=== PATIENT | male | born 1960 | race Caucasian/White ===

== ENCOUNTER 2020-06-19 08:24 | Outpatient (CLI) | payer OTHER, SELFPAY ==
--- NOTE | 2020-08-05 09:56 | WPDHOMESLEEP ---
Sleep Study - Home Unattended Date of Study: 06/19/20 Ordering Provider: Agustin Hargrove MD Interpreting Physician: Jacqueline Vance MD Home Sleep Study Type: Apnea Link Air Height: 1.8 m Weight: 76.204 kg Body Mass Index: 23.4 Neck Circumference (inches): 17 [place]: 8 Reason for Sleep Study Loud snoring Sleep History Joao Salomon is a 60 year-old man with a history of loud snoring for years. His wakes him up every night around 3:00-4:00 a.m. because of his loud snoring. He occasionally awakens at night with heartburn, belching or coughing. He rarely awakens from sleep feeling short of breath. He occasionally has trouble sleeping with a cold. He rarely wakes up gasping for breath at night. He occasionally has breathing problems at night observed by others. He rarely sweats excessively at night, rarely notices his heart pounding irregularly at night. He occasionally falls asleep during the day, never involuntarily, never while driving, and never while exerting physical effort. he does not have loss of muscle tone with strong emotion. He rarely has daytime difficulties due to excessive sleepiness. He does not feel paralyzed on waking or falling asleep, does not have vivid dreamlike scenes upon awakening or falling asleep. He is not afraid to go to sleep. He rarely has nightmares. He rarely remembers his dreams. He frequently has racing thoughts. He rarely feels sad or depressed. He occasionally feels anxious. He occasionally has muscular tension. He rarely notices parts of his body jerking, rarely kicks at night, rarely has crawling and aching feelings in his legs and rarely has any kind of leg pain at night. He does not have morning jaw pain. He does not grind his teeth during sleep. He occasionally has bothered by pain during the day, occasionally is awakened by pain at night. He rarely wakes up feeling stiff in the morning with sore achy muscles. He occasionally wakes up with pain in the neck and spine. he has memory problems, headaches, and feels unable to relax. Normal bedtime 9:00 p.m. taking 15-20 minutes to fall asleep, typically waking 1 time at night. when he wakes up he may go urinate, or may lie awake trying to get back to sleep. Often takes him 30 minutes to return to sleep. He wakes the morning at 5:30 a.m.. On the weekends he may stay awake later, going to bed between 9 and 9:30 p.m. waking at 7:00 a.m.. He estimates on average 8-9 hours of sleep at night. He does not take naps. A short nap may be refreshing. He feels better in the afternoon compared to the morning. Habits: Never smoked. Caffeine 132 out soda per day. No alcohol or recreational drugs. [facility] Past Medical History Medical History (Updated 08/05/20 @ 10:20 by Jacqueline Vance MD) Depression Pterygium eye surgery Pure hypercholesterolemia Snoring Social History Social History Smoking status: Never smoker Second hand tobacco smoke exposure: No Alcohol intake: never Substance use: never Medications Home Medications Medication Instructions Recorded Confirmed Type citalopram 20 mg tablet 20 mg PO DAILY #90 tablet 03/09/20 Rx Sleep Procedure This test was performed using 4 channel monitoring including respiratory effort channel, snoring channel, heart rate channel, and oxygen saturation channel. This study was scored using [facility] guidelines. Sleep Architecture Not applicable for home sleep test. Respiratory Analysis The recording time was 9 hours 24 minutes, evaluation time was 9 hours 8 minutes. The apnea-hypopnea index is 9. There were 67 apneas. The majority, 62 apneas or 93% were obstructive, 4 apneas or 6% were central and 1 apnea or 1% with a mixed apnea. There were 14 hypopneas. There is no evidence of Javon-Scott respirations. Oximetry Data The oxygen desaturation index is 5.4. There were 50 desaturations a 4% or greater. The low
[2020-08-05 10:11] VITALS: BMI 23.4
== END 2020-06-19 08:25 | disposition home or self-care (01) ==
LOC: ANHCSM 08:24
PROVIDERS: PCP Internal Medicine; Visit Provider Internal Medicine
DX: G47.33 Obstructive sleep apnea (adult) (pediatric) (principal)
CPT/HCPCS: 95806

== ENCOUNTER 2023-08-08 17:44 | Inpatient (IN) | payer OTHER, SELFPAY ==
[2023-08-08] VITALS (27 sets, daily range): BP systolic 117–147; BP diastolic 70–97; PULSE 62–85; RESP 13–20; TEMP 36.4–36.6; O2SAT 94–100; BMI 24.1
--- NOTE | ~2023-08-08 | XR_ITS ---
EXAMINATION: XR chest 2V DATE: 08/08/2023 18:10 INDICATION: Chest pain. TECHNIQUE: Frontal and lateral views of the chest were obtained. COMPARISON: Chest 2 views 01/17/2019 FINDINGS: There is no pneumonia, pleural effusion, or pneumothorax. The heart size is normal. IMPRESSION: 1. No acute cardiopulmonary disease. Reviewed, dictated and finalized at location E. RT FIRER
--- NOTE | 2023-08-08 17:45 | ECG_ITS ---
Measurements Intervals [place] Rate: 67 P: 64 [place]: 162 QRS: -75 QRSD: 156 T: 36 QT: 424 QTc: 449 Interpretive Statements SINUS RHYTHM WITH SINUS ARRHYTHMIA POSSIBLE LEFT ATRIAL ENLARGEMENT RIGHT BUNDLE BRANCH BLOCK LEFT ANTERIOR FASCICULAR BLOCK ST ELEVATION IN HIGH LATERAL LEADS- CONSIDER ACUTE INJURY WITH RECIPROCAL ST DEPRESSION IN INFERIOR LEADS ABNORMAL ECG NO PREVIOUS ECG AVAILABLE FOR COMPARISON Electronically Signed On 08-08-2023 18:48:37 [employer] by Toney Camara D.O.
[2023-08-08 18:09] LABS: Basophils Percent Auto 0.4 % (0.2-1.2); Eosinophils Absolute Auto 0.5 K/mm3 (0-0.3); Hematocrit 49.8 % (42.0-52.0); Hemoglobin 16.3 g/dL (14.0-18.0); Immature Granulocyte Absolute 0.03 K/mm3 (0.00-0.031); Immature Granulocyte Percent A 0.4 % (0-0.5); Lymphocytes Absolute Auto 1.53 K/mm3 (0.9-3.2); Mean Corpuscular HGB Conc 32.7 g/dl (32-36); Mean Corpuscular Hemoglobin 29.3 pg (26-34); Mean Corpuscular Volume 89.4 fl (80-100); Mean Platelet Volume 8.4 fl (7.4-10.4); Monocytes Absolute Auto 0.6 K/mm3 (0.1-0.6); Monocytes Percent Auto 7.9 % (2.6-8.5); Neutrophils Percent Auto 65.3 % (45.5-73.1); Platelet Count Result 260 k/mm3 (150-375); Red Blood Count 5.57 M/mm3 (4.6-6.20); Red Cell Distribution Width 12.9 % (11.5-14.5); White Blood Count 7.6 K/mm3 (4.5-10.0)
[2023-08-08 18:19] LABS: Prothrombin Time 13.8 Seconds (11.1-14.7)
[2023-08-08 18:20] LABS: Partial Thromboplastin Time 25.8 SECONDS (22.3-36.8)
[2023-08-08 18:22] LABS: Alanine Aminotransferase 32 U/L (6-50); Albumin Level 4.6 g/dL (3.5-5.1); Alkaline Phosphatase 82 U/L (38-126); Anion Gap 9 mmol/L (8-16); Aspartate Amino Transferase 35 U/L (17-59); Bilirubin,Total 0.8 mg/dL (0.2-1.3); Blood Urea Nitrogen 26 mg/dL (9-20); Calcium 9.5 mg/dL (8.4-10.2); Carbon Dioxide 30 mmol/L (22-30); Chloride 101 mmol/L (98-107); Estimated CRCL calculation 86 ml/min; Estimated Glomerular Filt Rate > 60; Glucose 114 mg/dL (65-110); Lipase 92 U/L (23-300); Potassium 4.2 mmol/L (3.4-5.0); Sodium 140 mmol/L (137-145)
--- NOTE | 2023-08-08 18:28 | ECG_ITS ---
Measurements Intervals [place] Rate: 73 P: 52 [place]: 164 QRS: -77 QRSD: 159 T: 61 QT: 427 QTc: 474 Interpretive Statements SINUS RHYTHM POSSIBLE LEFT ATRIAL ENLARGEMENT RIGHT BUNDLE BRANCH BLOCK LEFT ANTERIOR FASCICULAR BLOCK ABNORMAL ECG COMPARED TO ECG 08/08/2023 17:48:47 ST ELEVATION IMPROVED AND ST DEPRESSION RESOLVED Electronically Signed On 08-09-2023 9:10:20 FIELD RESEARCH ASSISTANT by Toney Camara D.O.
[2023-08-08 18:35] LABS: Troponin I 0.195 ng/mL (0.000-0.034)
[2023-08-08] MEDS: ASPIRIN 81 MG CHEWABLE TABLET 324 MG PO (18:48)
--- NOTE | 2023-08-08 19:50 | ED.GENADULT ---
HPI - General Adult General Chief complaint: Chest Pain Stated complaint: cp Time Seen by Provider: 08/08/23 19:08 History of Present Illness HPI narrative: Patient is a 63-year-old gentleman who presents emergency department with chief complaint of chest pain. Patient reports that he was at the gym today had an episode of midsternal chest pain reports that it was a pressure and squeezing sensation that radiated to his back the patient states the pain is resolved since he has arrived to the emergency department patient did report that he may have been a little sweaty but had just been working out and reports he felt a little short of breath when it 1st happened the patient reports that he is normally very active individual and has not had an episode like this happen whenever he has activity. Patient reports no prior history of cardiac disease Related Data Allergies Allergy/AdvReac Type Severity Reaction Status Date / Time cefuroxime Allergy Mild GI upset Verified 10/10/22 15:50 Review of Systems Review of Systems: A 10 system review of systems was completed on the patient and is negative except for what is stated in the HPI. Nursing and ancillary documentation was reviewed. [facility] Past Medical History Medical History Depression Pterygium eye surgery Pure hypercholesterolemia Snoring Social History Social History Smoking status: Never smoker Second hand tobacco smoke exposure: No Alcohol intake: never Substance use: never Lack of Transportation: No Lack of Food: Never True Current Housing: I Have Housing Concerned About Future Housing: No Difficulty Paying Gas/Electric Bills: No Difficulty Paying for Meds: No Currently Unemployed: No Education: Bachelor's Degree Difficulty w/ Childcare or Family Care: No Exam Narrative: GENERAL: Well-appearing, well-nourished, and in no acute distress. HEAD: Normocephalic, atraumatic. EYES: PERRLA and EOMI. ENT: Nares clear, no rhinorrhea or epistaxis. Mucous membranes moist. NECK: Supple. CHEST: Clear to auscultation. No respiratory distress. HEART: Regular rate and rhythm. No murmur heard. Normal peripheral pulses. ABDOMEN: Soft, nontender, nondistended, normal active bowel sounds. EXTREMITIES: Normal range of motion. No edema. SKIN: Warm, dry, no rash. NEURO: No focal deficits. Alert and oriented x3. PSYCH: Normal mood and affect. Course Vital Signs Vital signs: Vital Signs Temperature 36.4 C 08/08/23 18:01 Pulse Rate 71 08/08/23 18:01 Respiratory Rate 20 08/08/23 18:01 Blood Pressure 147/93 H 08/08/23 18:01 Pulse Oximetry 100 08/08/23 18:01 Oxygen Delivery Room Air 08/08/23 18:01 Temperature 36.4 C 08/08/23 18:01 Pulse Rate 76 08/08/23 18:41 Respiratory Rate 20 08/08/23 18:41 Blood Pressure 145/97 H 08/08/23 18:41 Pulse Oximetry 96 08/08/23 18:41 Oxygen Delivery Room Air 08/08/23 18:01 Medical Decision Making MDM Narrative Medical decision making narrative: Differential diagnosis includes ACS, atypical chest pain, EKG initially was performed in triage that showed ST depression with minimal ST elevation the patient's pain had resolved and repeat EKG showed improvement in the ST depressions and ST elevations Upon initial arrival the patient's EKG was reviewed by the day provider and was not activated as an ST-elevation OR. Patient is currently chest pain-free and repeat EKG shows improvement in the ST depressions and improvement in the ST elevations the case was discussed with Dr. Gandara who is on-call for Interventional Cardiology given the patient is chest pain-free and there is improvement in the EKG cardiology felt as though the patient did not require emergent cardiac catheterization and will plan for cardiac catheterization during the daytime the patie
[2023-08-08] MEDS: METOPROLOL TARTRATE 25 MG TABLET PO (20:14)
[2023-08-08] MEDS: NITROGLYCERIN OINTMENT 1 INCH DOSE TRANSDERM (20:14)
[2023-08-08] MEDS: HEPARIN SODIUM 5,000 UNITS/ML VIAL 4000 UNITS IV PUSH (20:17)
--- NOTE | 2023-08-08 20:17 | PM.IMHP ---
H&P: HPI History of Present Illness Date/Time: 08/08/23 20:17 Chief Complaint: Chest stiffness Review of Systems Review of Systems: 12 systems were reviewed with pertinent positives and negatives per HPI. Except as documented in the HPI, all other systems were reviewed and are negative. [facility] Past Medical History Medical History (Updated 08/09/23 @ 00:50 by Elvira Arrieta DO) Allergic rhinitis Depression Obstructive sleep apnea Polysomnogram 2020 recommending auto titrating CPAP 6-15 cm of water. However the patient states his physician told him given his symptoms that he did not need to use CPAP Pterygium eye surgery Pure hypercholesterolemia Squamous cell carcinoma of right hand Surgical History Surgical History (Updated 08/09/23 @ 00:59 by Elvira Arrieta DO) No history of previous surgery Family History Family History (Updated 08/09/23 @ 01:01 by Elvira Arrieta DO) Father Heart disease Acute myocardial infarction, Onset Age: 50 COPD (chronic obstructive pulmonary disease) Cause of approximately 70 Mother Age older than 80 years Healthy adult Social History Social History (Updated 08/09/23 @ 01:03 by Elvira Arrieta DO) Social History: Patient lives with his of 27 years. He has 2 step children. 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 He does not drink alcohol at all. He is a lifelong nonsmoker and does not use illicit substances. 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 Code status: Full code Surrogate decision maker: Muriel () cell number Smoking status: Never smoker Second hand tobacco smoke exposure: No Alcohol intake: never Substance use: never Substance use type: does not use Do You Feel Safe in your Home?: Yes Lack of Transportation: No Lack of Food: Never True Current Housing: I Have Housing Concerned About Future Housing: No Difficulty Paying Gas/Electric Bills: No Difficulty Paying for Meds: No Currently Unemployed: No Education: Bachelor's Degree Difficulty w/ Childcare or Family Care: No Spiritual care concerns: No Meds Home Medications and Allergies Home Medications Medication Instructions Recorded Confirmed Type citalopram 20 mg tablet (Celexa) 20 mg PO QHS 08/09/23 08/09/23 History Allergies Allergy/AdvReac Type Severity Reaction Status Date / Time cefuroxime Allergy Mild GI upset Verified 10/10/22 15:50 Vital Signs Vital Signs - 24 hr 08/08/23 18:01 08/08/23 18:41 Temperature 97.6 F Pulse Rate 71 76 Respiratory Rate 20 20 Blood Pressure 147/93 H 145/97 H Pulse Oximetry 100 96 Oxygen Delivery Room Air Exam Narrative: Weight 78.6 kg BMI 24.2 Const: Other: Well-developed, well-nourished, appears younger than stated age HENMT: Other: Head is normocephalic atraumatic, male pattern baldness, mucous membranes are moist, no oral pharyngeal erythema, crowded posterior oropharynx Eyes: Other: Pupils are equal and reactive, no scleral icterus, no conjunctival pallor Neck: Other: No JVD, supple Resp: Other: Clear to auscultation bilaterally, no increased work of breathing Cardio: Other: Regular rate, regular rhythm, 2+ bilateral radial pedal pulses GI: Other: Soft, nontender, nondistended, positive bowel sounds Skin: Other: No jaundice, no pallor Neuro: Other: Alert oriented, speech is clear, no facial asymmetry, no localizing neurologic deficits Extrem: Other: No clubbing, cyanosis or edema Psych: Other: Appropriate mood and affect, pleasant and cooperative H&P: Results Labs Labs: Laboratory Tests 08/08/23 17:55 08/08/23 17:55 08/08/23 17:55 WBC 7.6 RBC 5.57 Hgb 16.3 Hct 49.8 MCV 89.4 MCH 29.3 MCHC 32.7 RDW 12.9 Plt Count 260
[2023-08-08] MEDS: HEPARIN SOD/D5W 100 UNITS/ML 25,000 UNITS/250 ML BAG 9 UNITS IV CONT (20:18)
[2023-08-08] MEDS: SODIUM CHLORIDE 0.9% IV 1,000 ML 125 ML IV CONT (21:09)
--- NOTE | 2023-08-08 21:14 | ECG_ITS ---
Measurements Intervals [place] Rate: 64 P: 59 [place]: 172 QRS: -58 QRSD: 158 T: 53 QT: 432 QTc: 447 Interpretive Statements SINUS RHYTHM RIGHT BUNDLE BRANCH BLOCK LEFT ANTERIOR FASCICULAR BLOCK BASELINE ARTIFACT- I, III, AVL ABNORMAL ECG COMPARED TO ECG 08/08/2023 18:28:16 NO SIGNIFICANT CHANGES Electronically Signed On 08-09-2023 6:41:02 CLASSIFIED COPY CONTROL CLERK by Toney Camara D.O.
[2023-08-09] VITALS (25 sets, daily range): BP systolic 111–152; BP diastolic 68–98; PULSE 62–77; RESP 16–22; TEMP 36.3–37.2; O2SAT 93–99
--- NOTE | 2023-08-09 | ECHO_ITS ---
Patient Info Name: Joao Salomon Age: 63 years : 1960 Gender: Male Ht: 71 in Wt: 168 lbs BSA: 1.96 m2 HR: 69 bpm BP: 114 / 74 mmHg Heart Rhythm: Sinus Rhythm Technical Quality: Good Exam Date: 08/09/2023 1:19 PM Exam Location: Echo Lab Patient Status: Inpatient Admit Date: 08/08/2023 Staff Ordering Physician: Alvin Zamudio MD Surgical Territory Manager: Genoveva Bui RDCS Attending Provider: Elvira Arrieta DO Referring Physician: Lizz MUÑOZ; Exam Type: CA echo doppler color flow Study Info Indications - acute coronary syndrom Complete two-dimensional, color flow and Doppler transthoracic echocardiogram is performed. Summary 1. Complete two-dimensional, color flow and Doppler transthoracic echocardiogram is performed. 2. Left ventricular chamber dimension is normal. 3. Left ventricular systolic function is normal, estimated at 60-65%. 4. There is mildly increased left ventricular wall thickness. 5. The left ventricular diastolic function is grade I diastolic dysfunction. 6. The apical lateral wall, and apical cap are hypokinetic. 7. Left atrial chamber dimension is mildly enlarged. 8. There is mild mitral valve regurgitation. 9. There is mild pulmonic regurgitation. Left Ventricle Left ventricular chamber dimension is normal. Left ventricular systolic function is normal, estimated at 60-65%. There is mildly increased left ventricular wall thickness. The left ventricular diastolic function is grade I diastolic dysfunction. The apical lateral wall, and apical cap are hypokinetic. All other enciso appear normal. Right Ventricle Right ventricular chamber dimension is normal. Right ventricular systolic function is normal. Left Atria Left atrial chamber dimension is mildly enlarged. Right Atria Right atrial chamber dimension is normal. Atrial Septum Intact interatrial septum visualized by color flow imaging. Aortic Valve The aortic valve is trileaflet. There is no aortic valve sclerosis. There is no aortic valve stenosis. There is trace aortic valve regurgitation. Pulmonic Valve The pulmonic valve is normal. There is no pulmonic valve stenosis. There is mild pulmonic regurgitation. Mitral Valve The mitral valve has normal leaflets. There is no mitral valve stenosis. There is mild mitral valve regurgitation. Tricuspid Valve The tricuspid valve leaflets are normal. There is no significant tricuspid valve stenosis. There is trace tricuspid valve regurgitation. No pulmonary hypertension, estimated pulmonary arterial systolic pressure is 25 mmHg. Pericardium/Pleural The pericardium appears normal. There is no pericardial effusion. Inferior Vena Cava Dilated inferior vena cava with >50% collapse upon inspiration consistent with normal right atrial pressure, 15 mmHg. Aorta The aortic root size at the sinus of Valsalva is normal. Left Ventricular Outflow Tract Name Value Normal LVOT 2D LVOT Diameter 2.0 cm LVOT Doppler LVOT Peak Gradient 4 mmHg LVOT Mean Gradient 2 mmHg LVOT VTI 20 cm LVOT VTI/AV VTI Ratio 0.7 LVOT Stroke Volume
--- NOTE | 2023-08-09 00:02 | ADMGEN ---
This patient, Joao Salomon, was admitted to IMU Room 203-01. Patient/family oriented to hospital policies and general routines including ID bracelet, bed and alarms, visiting hours, pain management, procedures, bathroom and other care routines, personal items, smoking policy, room service/diet, and visiting hours. Information on how to activate the Rapid Response Team has been discussed. Patient/Family are encouraged to report perceived risks to care and to ask questions if they do not understand what they are told or what they should do.
[2023-08-09 00:27] LABS: Cholesterol 238 mg/dL (0-200); HDL Direct 58 mg/dL; Triglycerides 92 mg/dL (<150)
[2023-08-09 00:36] LABS: Basophils Percent Auto 0.2 % (0.2-1.2); Eosinophils Absolute Auto 0.2 K/mm3 (0-0.3); Eosinophils Percent Auto 2.1 % (0-4.4); Hematocrit 47.7 % (42.0-52.0); Hemoglobin 15.5 g/dL (14.0-18.0); Immature Granulocyte Absolute 0.02 K/mm3 (0.00-0.031); Immature Granulocyte Percent A 0.2 % (0-0.5); Lymphocytes Absolute Auto 1.81 K/mm3 (0.9-3.2); Lymphocytes Percent Auto 21.3 % (18.3-44.2); Mean Corpuscular HGB Conc 32.5 g/dl (32-36); Mean Corpuscular Hemoglobin 28.7 pg (26-34); Mean Corpuscular Volume 88.3 fl (80-100); Mean Platelet Volume 8.4 fl (7.4-10.4); Monocytes Absolute Auto 0.6 K/mm3 (0.1-0.6); Monocytes Percent Auto 6.5 % (2.6-8.5); Neutrophils Absolute Auto 5.9 K/mm3 (1.3-6.7); Neutrophils Percent Auto 69.7 % (45.5-73.1); Platelet Count Result 252 k/mm3 (150-375); Red Cell Distribution Width 13.1 % (11.5-14.5); White Blood Count 8.5 K/mm3 (4.5-10.0)
[2023-08-09 00:37] LABS: INR 1.1; Prothrombin Time 14.1 Seconds (11.1-14.7)
[2023-08-09 00:38] LABS: LDL Cholesterol Direct 160 mg/dL; Partial Thromboplastin Time 81.7 SECONDS (22.3-36.8)
--- NOTE | 2023-08-09 01:00 | ECG_ITS ---
Measurements Intervals [place] Rate: 65 P: 21 [place]: 160 QRS: -63 QRSD: 161 T: 46 QT: 451 QTc: 471 Interpretive Statements SINUS RHYTHM RIGHT BUNDLE BRANCH BLOCK LEFT ANTERIOR FASCICULAR BLOCK ABNORMAL ECG COMPARED TO ECG 08/08/2023 21:08:58 NO SIGNIFICANT CHANGES Electronically Signed On 08-09-2023 6:49:26 RVDA MASTER CERTIFIED RV TECHNICIAN by Toney Camara D.O.
[2023-08-09] MEDS: CITALOPRAM HYDROBROMIDE 20 MG TABLET PO ×2 (02:01→20:48)
[2023-08-09 02:23] LABS: Basophils Percent Auto 0.3 % (0.2-1.2); Eosinophils Absolute Auto 0.2 K/mm3 (0-0.3); Hematocrit 45.9 % (42.0-52.0); Immature Granulocyte Absolute 0.01 K/mm3 (0.00-0.031); Immature Granulocyte Percent A 0.1 % (0-0.5); Lymphocytes Absolute Auto 1.75 K/mm3 (0.9-3.2); Mean Corpuscular HGB Conc 32.7 g/dl (32-36); Mean Corpuscular Hemoglobin 29.2 pg (26-34); Mean Corpuscular Volume 89.3 fl (80-100); Mean Platelet Volume 8.3 fl (7.4-10.4); Monocytes Absolute Auto 0.6 K/mm3 (0.1-0.6); Monocytes Percent Auto 7.9 % (2.6-8.5); Neutrophils Percent Auto 65.7 % (45.5-73.1); Platelet Count Result 216 k/mm3 (150-375); Red Blood Count 5.14 M/mm3 (4.6-6.20); White Blood Count 7.6 K/mm3 (4.5-10.0)
[2023-08-09 02:41] LABS: INR 1.1; Prothrombin Time 14.2 Seconds (11.1-14.7)
[2023-08-09 02:43] LABS: Partial Thromboplastin Time 63.1 SECONDS (22.3-36.8)
[2023-08-09] MEDS: ASPIRIN 81 MG CHEWABLE TABLET PO (08:40)
[2023-08-09] MEDS: METOPROLOL TARTRATE 25 MG TABLET PO ×2 (08:41→20:48)
[2023-08-09] MEDS: ATORVASTATIN 40 MG TABLET PO (08:41)
[2023-08-09 09:15] LABS: Partial Thromboplastin Time 66.6 SECONDS (22.3-36.8)
[2023-08-09] MEDS: HEPARIN SODIUM 5,000 UNITS/ML VIAL 3000 UNITS IV PUSH (09:47)
--- NOTE | 2023-08-09 11:26 | PM.CNCAR ---
Assessment and Plan Assessment and plan (1) ACS (acute coronary syndrome): Code(s): I24.9 - Acute ischemic heart disease, unspecified Status: Acute Assessment and Plan: He has a few risk factors for coronary disease including family history artery disease, age and hyperlipidemia. EKGs are concerning for circumflex lesion. Currently pain free. continue heparin. Patient's troponins have peaked at over 7 and are now down trending. Patient is currently pain-free. Continue atorvastatin, aspirin, metoprolol, nitroglycerin. I did talk about the risks benefits alternatives and he verbalized understanding and is willing to proceed with a coronary angiogram. Patient will be kept NPO and this will be performed by Dr. Callaway. 2D echocardiogram Doppler was also ordered and will be reviewed (2) Obstructive sleep apnea: Code(s): G47.33 - Obstructive sleep apnea (adult) (pediatric) Status: Acute Assessment and Plan: Encourage CPAP use (3) Pure hypercholesterolemia: Code(s): E78.00 - Pure hypercholesterolemia, unspecified Status: Acute Assessment and Plan: Will start statin (4) Depression: Code(s): F32.9 - Major depressive disorder, single episode, unspecified Status: Acute Assessment and Plan: On citalopram History of Present Illness History of Present Illness Consult date/time: 08/09/23 11:26 Requesting physician: Valeriano Rivero MD Consult reason: chest pain Reason For Visit: Acute Coronary Syndrome Narrative: Reason for consultation: ACS, chest pain Date of service 08/09/2023 Requesting provider: Dr. Rivero History: Patient is a 63-year-old male who came to the hospital yesterday after developing acute onset of chest pain. Does not have a known history of coronary disease. He routinely works out and was on the treadmill yesterday when he redeveloped to sudden onset of anterior chest pain and indigestion. It radiated into his back. It started about 4:30 p.m. he came to the hospital. Symptoms resolved by about 6:30 p.m.. Initial ECG is concerning for ST-elevation myocardial infarction in the high lateral leads. Follow-up ECGs were performed with normalization of the ST segment changes. Apparently initial ECG was not initially reviewed in the ER. Follow-up ECGs were reviewed and a discussion was had with Dr. Turner last night. Patient was pain-free at that time and given normalization of ECG segment abnormalities, decision was made to treat for ACS. He was started on heparin drip, given statin, aspirin, metoprolol, p.r.n. nitro. Patient remained pain-free overnight. He still is pain-free at present has not had any previous episodes of chest discomfort like this. He denies any shortness breath, syncope, presyncope, paroxysmal nocturnal dyspnea, orthopnea, edema palpitations. Review of Systems Review of Systems: All systems reviewed & are unremarkable except as noted in HPI and below Constitutional: Constitutional: Denies body ache(s) Eyes: Eyes: Denies blurry vision ENT: Denies Normal hearing present Cardiovascular: Cardiovascular: Reports chest pain Respiratory: Respiratory: Denies cough Gastrointestinal: Gastrointestinal: Denies abdominal pain Genitourinary: Genitourinary: Denies hematuria Musculoskeletal: Musculoskeletal: Denies back pain Integumentary/Breasts: Skin/Breast: Denies pruritus Neurologic: Denies Abnormal speech present Psychiatric: Psychiatric: Denies behavioral changes Endocrine: Endocrine: Denies excessive sweating Hematologic/Lymphatic: Hematologic/Lymphatic: Denies easy bleeding Allergic/Immunologic: Allergic/Immunologic: Denies GI upset with certain foods PMFSH Past Medical History Medical History Allergic rhinitis Depression Obstructive sleep apnea Polysomnogram 2020 recommending auto titrating CPAP 6-15 cm of water. However the patient
--- NOTE | 2023-08-09 14:50 | WPDMODSED ---
Moderate Sedation Note-Pt Data Patient Data Allergies Allergy/AdvReac Type Severity Reaction Status Date / Time cefuroxime Allergy Mild GI upset Verified 10/10/22 15:50 Home Medications Medication Instructions Recorded Confirmed Type citalopram 20 mg tablet (Celexa) 20 mg PO QHS 08/09/23 08/09/23 History Current Medications: Active Medications Aspirin (Aspirin 81 Mg Chewable Tablet) 81 mg PO DAILY@0800 [facility] Last Admin: 08/09/23 08:40 Dose: 81 mg Atorvastatin Calcium (Atorvastatin 40 Mg Tablet) 40 mg PO DAILY [facility] Last Admin: 08/09/23 08:41 Dose: 40 mg Citalopram Hydrobromide (Citalopram Hydrobromide 20 Mg Tablet) 20 mg PO QHS [facility] Last Admin: 08/09/23 02:01 Dose: 20 mg Heparin Sodium (Porcine) (Heparin Sodium 5,000 Units/Ml Vial) 4,000 units IV PUSH PRN PRN PRN Reason: aPTT less than 55 seconds Heparin Sodium (Porcine) (Heparin Sodium 5,000 Units/Ml Vial) 3,000 units IV PUSH PRN PRN PRN Reason: aPTT 55 - 70 seconds Last Admin: 08/09/23 09:47 Dose: 3,000 units Heparin Sodium/Dextrose (Heparin Sodium/D5w 100 Units/Ml) 25,000 units in 250 mls @ 13 mls/hr IV CONT .[id number] [facility]; Protocol Last Titration: 08/09/23 09:49 Dose: 1,300 units/hr, 13 mls/hr Sodium Chloride (Normal Saline Iv) 1,000 mls @ 125 mls/hr IV CONT .Q8H [facility] Last Infusion: 08/08/23 23:45 Dose: 0 mls/hr Metoprolol Tartrate (Metoprolol Tartrate 25 Mg Tablet) 25 mg PO Q12HR [facility] Last Admin: 08/09/23 08:41 Dose: 25 mg Ondansetron HCl (Ondansetron Inj 4 Mg/2 Ml Vial) 4 mg IV PUSH Q4H PRN PRN Reason: Nausea Perflutren Lipid Microsphere (Perflutren Lipid Microspheres 1.5 Ml Vial Diluted To 10 Ml Total Volume) 0 ml IV PUSH ONCE PRN; Protocol PRN Reason: adequate visualization Stop: 08/12/23 11:27 Sedation/Anesthesia: No previous sedation/anesthesia problems (including family history). [facility], LAT[facility] Past Medical History Medical History Allergic rhinitis Depression Obstructive sleep apnea Polysomnogram 2020 recommending auto titrating CPAP 6-15 cm of water. However the patient states his physician told him given his symptoms that he did not need to use CPAP Pterygium eye surgery Pure hypercholesterolemia Squamous cell carcinoma of right hand Surgical History Surgical History No history of previous surgery Family History Family History Father Heart disease Acute myocardial infarction, Onset Age: 50 COPD (chronic obstructive pulmonary disease) Cause of approximately 70 Mother Age older than 80 years Healthy adult Social History Social History Social History: Patient lives with his of 27 years. He has 2 step children. 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 He does not drink alcohol at all. He is a lifelong nonsmoker and does not use illicit substances. 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 Code status: Full code Surrogate decision maker: Muriel () cell number Smoking status: Never smoker Second hand tobacco smoke exposure: No Alcohol intake: never Substance use: never Substance use type: does not use Do You Feel Safe in your Home?: Yes Lack of Transportation: No Lack of Food: Never True Current Housing: I Have Housing Concerned About Future Housing: No Difficulty Paying Gas/Electric Bills: No Difficulty Paying for Meds: No Currently Unemployed: No Education: Bachelor's Degree Difficulty w/ Childcare or Family Care: No Spiritual care concerns: No Mod Sed Physical Exam Physical Exam Pre Procedural Exam: Normal: Airway Hours since solid foods: 10 Hours since liquid intake: 10 Mallampati Classification: class III
--- NOTE | 2023-08-09 15:26 | PC.NURSE ---
1450 patient to CCL
--- NOTE | 2023-08-09 16:07 | WPDCARDPROC ---
Cardiac Cath Procedure Note Date of procedure:: 08/09/23 Performing physician:: Bobby Callaway MD Procedure Procedure note:: CARDIAC CATHETERIZATION AND PERCUTANEOUS CORONARY INTERVENTION REPORT DATE OF PROCEDURE: 08/09/2023 INDICATION FOR PROCEDURE: ACS-non ST-elevation IA BRIEF CLINICAL HISTORY: 63-year-old male with no known prior cardiac history presented to [facility] Emergency Room on 08/08/2023 with complaints of anginal chest pain. His EKG showed sinus rhythm with ischemic ST segment changes. Troponins were elevated consistent with non ST elevation IA. He was referred by Dr. Zamudio for cardiac catheterization. Benefits and risks of the procedure were discussed with the patient in depth, and informed consent was obtained prior to the procedure. Risks of the procedure include but are not limited to vascular complications including groin hematoma, retroperitoneal bleed, vessel perforation; periprocedural IA, cardiac arrhythmias, stroke, contrast induced nephropathy, and . After discussing all the benefits, risks and alternatives, patient was willing to proceed with the procedure. PROCEDURES PERFORMED: 1. Left heart catheterization- Selective left and right coronary angiogram 2. Percutaneous coronary intervention- a) Intravascular ultrasound ( IVUS) of left anterior descending artery b) balloon angioplasty and stenting of diffuse calcific stenosis in the mid LAD using a 3.5 x 38 mm Medtronic resolute jeff zotarolimus eluting stent with good angiographic and IVUS result; c) balloon angioplasty and stenting of ostial-proximal segment of major diagonal branch using a 3.0 x 18 mm Biotronik sirolimus eluting stent 3. Deployment of Mynx hemostatic device 4. Moderate sedation-CPT code 12760 and beyond MODERATE SEDATION: Midazolam 1 mg; fentanyl 25 mcg. Start time 1504 , Stop time 1602 ; Total [id number] time 58 minutes; Sondra Newsome RN was trained observer for moderate sedation. ACCESS SITE: Right common femoral artery PROCEDURE NOTE: After obtaining informed consent, patient was brought to catheterization lab and prepped and draped in a usual sterile manner. After local anesthesia with lidocaine, right common femoral artery access was taken with micropuncture needle followed by insertion of a 5 Argentine sheath. Selective left and right coronary angiogram was performed using 5 Argentine JL4 and JR4 catheters respectively. Orthogonal views were taken. Left ventriculogram was not performed. After completion of procedure, vascular closure device was deployed with good hemostasis. Patient tolerated procedure well without any immediate procedure related complications. FINDINGS: LEFT MAIN CORONARY: medium caliber vessel with mild tapering of the vessel in mid -distal segment. No significant focal stenosis. LEFT ANTERIOR DESCENDING ARTERY: Medium to large caliber vessel. There is diffuse about 70% stenosis in the mid segment between 2 diagonal branches. The vessel tapers distally and reaches LV apex. Major diagonal branch is a medium to large caliber vessel with high-grade about 90% stenosis in the proximal segment. Second diagonal branch has mild plaque in the ostium. LEFT CIRCUMFLEX ARTERY: Small to medium caliber vessel, gives rise to small caliber OM branch without significant focal stenosis. Non dominant vessel. RIGHT CORONARY ARTERY: Large caliber, dominant vessel. Mild plaque in the mid and distal segment. Vessel gives rise to medium caliber PDA branch and PLV branches. There is about 70% stenosis in the mid segment of the PLV branch Before it gives rise to PL branches and about 80-90% stenosis at the proximal segment of the PLV 2 branch. LEFT VENTRICULOGRAM: not performed. HEMODYNAMIC ASSESSMENT: Opening pressure 114/74 mmHg , closing pressure 137/70 mmHg. INTERVENTION REPORT: coronary angiogram showed diffuse stenosis in the mid LAD and ostial-proximal segment of major diagonal branch.
--- NOTE | 2023-08-09 16:28 | PM.IMPN ---
Progress Note: A&P Assessment and Plan (1) ACS (acute coronary syndrome): Code(s): I24.9 - Acute ischemic heart disease, unspecified Status: Acute (2) Pure hypercholesterolemia: Code(s): E78.00 - Pure hypercholesterolemia, unspecified Status: Acute Plan Patient presented with typical to substernal chest pain and initial EKG was consistent with STEMI. Patient received 4 baby aspirin and his chest pain resolved. Repeat EKG on re-evaluation 3 hours later demonstrated resolution of ST elevation and reciprocal changes. Patient was no longer having chest pain. Patient was started on heparin drip. The ER provider discussed the patient's case with Cardiology in since his STEMI had not been recognized on initial EKG in the patient's symptoms had resolved hospice team lead reportedly felt that the patient should be admitted to the hospitalist service and managed medically. Admit the patient NPO at midnight for likely intervention in a.m. given patient's troponins are still to continue to climb and her how are greater than 9. Patient did receive full-dose aspirin therapy will continue on baby aspirin daily. Lipid panel did demonstrate pure hypercholesterolemia. Patient will be started on atorvastatin 40 mg p.o. daily. Patient has been admitted to IMU. The patient's blood pressures on initial presentation were mildly elevated in the 140 systolic. He was started on metoprolol 25 mg in the ER and this will be continued daily. Patient will be pre hydrated with normal saline overnight. Will continue patient's home antidepressant with Celexa. Patient does have a history of mild obstructive sleep apnea for which he and his provider opted to not treat with CPAP. Given acute coronary syndrome patient would likely benefit from repeat evaluation of apnea. sp heart cath heart cath shows a)? about 70% diffuse calcific stenosis mid LAD between 2 diagonal branches; high-grade, about 90% stenosis proximal segment of major diagonal branch b)? mild plaque in mid -distal RCA; about 70% stenosis mid segment of PLV branch, about 80-90% stenosis in the proximal segment of PLV 2 branch. 2. ? IVUS guided multivessel multivessel PCI-? ? PTCA/stenting of diffuse stenosis in the mid LAD using a 3.5 x 38 mm resolute jeff zotarolimus eluting stent; PTCA/stenting of ostial-proximal segment of major diagonal branch using a 3.0 x 18 mm Biotronik sirolimus eluting stent. watch overnite on imu Subjective Date/time seen: 08/09/23 16:28 Interval history: pt admitted with chest pain sp heart cath showing - 1.? CAD - a)? about 70% diffuse calcific stenosis mid LAD between 2 diagonal branches; high-grade, about 90% stenosis proximal segment of major diagonal branch b)? mild plaque in mid -distal RCA; about 70% stenosis mid segment of PLV branch, about 80-90% stenosis in the proximal segment of PLV 2 branch. 2. ? IVUS guided multivessel multivessel PCI-? ? PTCA/stenting of diffuse stenosis in the mid LAD using a 3.5 x 38 mm resolute jeff zotarolimus eluting stent; PTCA/stenting of ostial-proximal segment of major diagonal branch using a 3.0 x 18 mm Biotronik sirolimus eluting stent. Pt states he was never on any medications before here found to have high cholesterol levels Review of Systems Review of Systems: chest pain Exam Const: Other: Well-developed, well-nourished HENMT: Other: Head is normocephalic atraumatic, male pattern baldness, mucous membranes are moist, no oral pharyngeal erythema, crowded posterior oropharynx Eyes: Other: Pupils are equal and reactive, no scleral icterus, no conjunctival pallor Neck: Other: No JVD, supple Resp: Other: Clear to auscultation bilaterally, no increased work of breathing Cardio: Other: Regular rate, regular rhythm, 2+ bilateral radial pedal pulses GI: Other: Soft, nontender, nondistended, positive bowel sounds Skin: Other: No jaundice, n
[2023-08-09] MEDS: SODIUM CHLORIDE 0.9% IV 1,000 ML 100 ML IV CONT (16:30)
[2023-08-09] MEDS: TICAGRELOR 90 MG TABLET PO (20:48)
[2023-08-10] VITALS (7 sets, daily range): BP systolic 141–155; BP diastolic 86–92; PULSE 64–79; RESP 16–20; TEMP 36.4–36.8; O2SAT 95
[2023-08-10] MEDS: ASPIRIN 81 MG CHEWABLE TABLET PO (09:05)
[2023-08-10] MEDS: TICAGRELOR 90 MG TABLET PO (09:05)
[2023-08-10] MEDS: ATORVASTATIN 40 MG TABLET PO (09:06)
[2023-08-10] MEDS: METOPROLOL TARTRATE 25 MG TABLET PO (09:06)
--- NOTE | 2023-08-10 10:03 | PM.PNCARD ---
Progress Note: A&P Assessment and Plan (1) ACS (acute coronary syndrome): Code(s): I24.9 - Acute ischemic heart disease, unspecified Status: Acute Assessment and Plan: Status post IVUS guided multivessel multivessel PCI with PTCA/stenting of diffuse stenosis in the mid LAD using a 3.5 x 38 mm resolute jeff zotarolimus eluting stent; PTCA/stenting of ostial-proximal segment of major diagonal branch using a 3.0 x 18 mm Biotronik sirolimus eluting stent. Cotninue DAPT with ASA, Brilinta for one year. ASA indefinitely Continue statin Continue beta mima Risk factor modification for CAD Cardiac rehab Ok for discharge today from a cardiac perspective (2) Obstructive sleep apnea: Code(s): G47.33 - Obstructive sleep apnea (adult) (pediatric) Status: Acute Assessment and Plan: Encourage CPAP use (3) Pure hypercholesterolemia: Code(s): E78.00 - Pure hypercholesterolemia, unspecified Status: Acute Assessment and Plan: Continue (4) Depression: Code(s): F32.9 - Major depressive disorder, single episode, unspecified Status: Acute Assessment and Plan: On citalopram Subjective Date/time seen: 08/10/23 10:03 Interval history: Cardiology follow up for CAD, NSTEMI Date of service 08/10/2023: He is feeling very well this morning and does not have any complaints. He is up and walking around the room when I entered to see him. He denies any chest pain, shortness of breath, or palpitations. He is eager to go home today. Review of Systems Review of Systems: All systems reviewed & are unremarkable except as noted in HPI and below Constitutional: Constitutional: Denies body ache(s) and Denies excessive sweating Eyes: Eyes: Denies blurry vision ENT: Denies Normal hearing present Cardiovascular: Cardiovascular: Reports chest pain Respiratory: Respiratory: Denies cough Gastrointestinal: Gastrointestinal: Denies abdominal pain Genitourinary: Genitourinary: Denies hematuria Musculoskeletal: Musculoskeletal: Denies back pain Integumentary/Breasts: Skin/Breast: Denies pruritus Neurologic: Denies Normal hearing present, Denies Abnormal speech present and Denies behavioral changes Psychiatric: Psychiatric: Denies behavioral changes Endocrine: Endocrine: Denies excessive sweating Hematologic/Lymphatic: Hematologic/Lymphatic: Denies easy bleeding Allergic/Immunologic: Allergic/Immunologic: Denies GI upset with certain foods Exam Narrative: Awake alert and oriented appears stated age Const: General: comfortable and no acute distress HENMT: Face/Nose/Sinus: Normal nares present Mouth: Yes moist mucous membranes Eyes: General: appearance normal, both eyes and all related structures Sclera: sclerae normal Neck: Neck: supple and no JVD Carotids: no bruits Chest: Other: No reproducible chest wall pain to palpation Resp: Effort & Inspection: normal respiratory effort Auscultation: clear to auscultation bilaterally Cardio: Rate: regular rate Rhythm: regular rhythm Heart sounds: no murmurs GI: Inspection: non-distended Skin: General skin exam: normal color and no rashes or lesions noted Other: Right groin arterial access site free from bleeding, hematoma, or bruit. Neuro: Cranial nerves: No Normal hearing present Speech: normal speech and No Abnormal speech present Sensory Exam: normal sensation Extrem: General: normal to inspection Psych: Mental Status: mental status grossly normal Objective Data Vital Signs Vital Signs: Vital Signs - 24 hr 08/09/23 11:22 08/09/23 16:15 08/09/23 16:45 Temperature 36.9 C 36.7 C Pulse Rate 69 67 67 Pulse Rate [Monitor] Respiratory Rate 18 20 17 Blood Pressure 114/74 143/85 H 142/87 H Pulse Oximetry 95 97 97 Oxygen Delivery 08/09/23 16:15 08/09/23 17:00 08/09/23 17:00 Temperature 36.9 C Pulse Rate 67 Pulse Rate [Monitor] 67 67 Respiratory R
--- NOTE | 2023-08-10 10:29 | PM.DS ---
DS: Admitting Diagnosis Discharge Date 08/10/2023 Admitting Diagnosis Chest pain DS: Discharge Diagnosis Discharge Diagnosis (1) ACS (acute coronary syndrome): Code(s): I24.9 - Acute ischemic heart disease, unspecified Status: Acute (2) Pure hypercholesterolemia: Code(s): E78.00 - Pure hypercholesterolemia, unspecified Status: Acute Plan Patient presented with typical to substernal chest pain and initial EKG was consistent with STEMI. Patient received 4 baby aspirin and his chest pain resolved. Repeat EKG on re-evaluation 3 hours later demonstrated resolution of ST elevation and reciprocal changes. Patient was no longer having chest pain. Patient was started on heparin drip. The ER provider discussed the patient's case with Cardiology in since his STEMI had not been recognized on initial EKG in the patient's symptoms had resolved procedure analyst reportedly felt that the patient should be admitted to the hospitalist service and managed medically. Admit the patient NPO at midnight for likely intervention in a.m. given patient's troponins are still to continue to climb and her how are greater than 9. Patient did receive full-dose aspirin therapy will continue on baby aspirin daily. Lipid panel did demonstrate pure hypercholesterolemia. Patient will be started on atorvastatin 40 mg p.o. daily. Patient has been admitted to IMU. The patient's blood pressures on initial presentation were mildly elevated in the 140 systolic. He was started on metoprolol 25 mg in the ER and this will be continued daily. Patient will be pre hydrated with normal saline overnight. Will continue patient's home antidepressant with Celexa. Patient does have a history of mild obstructive sleep apnea for which he and his provider opted to not treat with CPAP. Given acute coronary syndrome patient would likely benefit from repeat evaluation of apnea. Sp heart cath heart cath shows a)? about 70% diffuse calcific stenosis mid LAD between 2 diagonal branches; high-grade, about 90% stenosis proximal segment of major diagonal branch b)? mild plaque in mid -distal RCA; about 70% stenosis mid segment of PLV branch, about 80-90% stenosis in the proximal segment of PLV 2 branch. 2. ? IVUS guided multivessel multivessel PCI-? ? PTCA/stenting of diffuse stenosis in the mid LAD using a 3.5 x 38 mm resolute jeff zotarolimus eluting stent; PTCA/stenting of ostial-proximal segment of major diagonal branch using a 3.0 x 18 mm Biotronik sirolimus eluting stent. DS: Summary Hospital Course Hospital Course: pt admitted with chest pain sp heart cath showing - 1.? CAD - a)? about 70% diffuse calcific stenosis mid LAD between 2 diagonal branches; high-grade, about 90% stenosis proximal segment of major diagonal branch b)? mild plaque in mid -distal RCA; about 70% stenosis mid segment of PLV branch, about 80-90% stenosis in the proximal segment of PLV 2 branch. 2. ? IVUS guided multivessel multivessel PCI-? ? PTCA/stenting of diffuse stenosis in the mid LAD using a 3.5 x 38 mm resolute jeff zotarolimus eluting stent; PTCA/stenting of ostial-proximal segment of major diagonal branch using a 3.0 x 18 mm Biotronik sirolimus eluting stent. Pt states he was never on any medications before here found to have high cholesterol levels Watch overnite and dc tomorrow home Time Spent with Patient Time attestation: Total time spent providing and/or coordinating discharge services:45 minutes on day of DC Exam Const: Other: Well-developed, well-nourished HENMT: Other: Head is normocephalic atraumatic, male pattern baldness, mucous membranes are moist, no oral pharyngeal erythema, crowded posterior oropharynx Eyes: Other: Pupils are equal and reactive, no scleral icterus, no conjunctival pallor Neck: Other: No JVD, supple Resp: Other: Clear to auscultation bilaterally, no increased work of breathing Cardio: Other: Regular
== END 2023-08-10 12:19 | disposition home or self-care (01) | DRG 321 ==
LOC: ANHED 21:47 → ANHIMU 23:04
PROVIDERS: Emergency Medicine; Internal Medicine Cardiovascular Disease; Admitting Provider Internal Medicine; Emergency Provider Emergency Medicine; PCP Internal Medicine; Visit Provider Family Medicine
PROC: 4A023N7 Measurement of Cardiac Sampling and Pressure, Left Heart, Percutaneous Approach (ICD-10-PCS; CPT 93452; principal; 2023-08-09 14:30)
PROC: 4A023N7 Measurement of Cardiac Sampling and Pressure, Left Heart, Percutaneous Approach (ICD-10-PCS; 2023-08-09 14:30)
PROC: 4A023N7 Measurement of Cardiac Sampling and Pressure, Left Heart, Percutaneous Approach (ICD-10-PCS; 2023-08-09 14:30)
PROC: 4A023N7 Measurement of Cardiac Sampling and Pressure, Left Heart, Percutaneous Approach (ICD-10-PCS; 2023-08-09 14:30)
PROC: 4A023N7 Measurement of Cardiac Sampling and Pressure, Left Heart, Percutaneous Approach (ICD-10-PCS; 2023-08-09 14:30)
DX: I24.9 Acute ischemic heart disease, unspecified (principal); I21.4 Non-ST elevation (NSTEMI) myocardial infarction; I25.10 Atherosclerotic heart disease of native coronary artery without angina pectoris; E78.00 Pure hypercholesterolemia, unspecified; F32.A Depression, unspecified; G47.33 Obstructive sleep apnea (adult) (pediatric); Z85.828 Personal history of other malignant neoplasm of skin
CPT/HCPCS: 36415; 71046; 80053; 80061; 83690; 84484; 85025; 85610; 85730; 92978; 93005; 93306; 93458; 99285; A9270; C1725; C1753; C1760; C1769; C1874; C1887; C1894; C9600; C9601; G0269; J0583; J1644; J2250; J2305; J3010; J7030; J7040

== ENCOUNTER 2023-08-15 08:40 | Emergency (ER) | payer OTHER, SELFPAY ==
[2023-08-15] VITALS (7 sets, daily range): BP systolic 111–131; BP diastolic 72–84; PULSE 60–67; RESP 16–26; TEMP 36.6–36.7; O2SAT 96–100
--- NOTE | ~2023-08-15 | XR_ITS ---
EXAMINATION: XR chest 2V DATE: 08/15/2023 09:15 INDICATION: Left arm heaviness and pain. TECHNIQUE: Frontal and lateral views of the chest were obtained. COMPARISON: Chest 2 views 08/08/2023 FINDINGS: There is no pneumonia, pleural effusion, or pneumothorax. The heart size is normal. IMPRESSION: 1. No acute cardiopulmonary disease. Reviewed, dictated and finalized at location A. [facility] [employer]
--- NOTE | 2023-08-15 08:41 | ECG_ITS ---
Measurements Intervals Jumping Branch Rate: 66 P: -15 MI: 167 QRS: 266 QRSD: 144 T: 39 QT: 412 QTc: 434 Interpretive Statements SINUS RHYTHM RIGHT BUNDLE BRANCH BLOCK CANNOT RULE OUT SEPTAL INFARCT, AGE INDETERMINATE BASELINE ARTIFACT- I, III, AVL, V1, V4 ABNORMAL ECG COMPARED TO ECG 08/09/2023 01:14:06 NO SIGNIFICANT CHANGES Electronically Signed On 08-15-2023 11:10:50 FACILITY MAINTENANCE WORKER by Toney Camara D.O.
--- NOTE | 2023-08-15 08:58 | ED.CHESTPAIN ---
HPI - Chest Pain General Chief Complaint: Chest Pain Stated Complaint: left arm pain, recent RI Time Seen by Provider: 08/15/23 08:57 Source: patient and old records reviewed Mode of arrival: ambulatory Limitations: no limitations History of Present Illness HPI narrative: Patient is a 63 y/o male who presents to the ED with c/o L arm pain. Per records, patient was seen in the ED last Monday for CP and admitted with ACS/elevated Troponin. He underwent cardiac catheterization last Monday under Dr. Callaway and received 2 stents in his LAD and major diagonal branch. He was noted to have several other areas of moderate stenosis to his RPL branches. Patient was discharged on and has been doing well since, scheduled to f/u with Cardiology on 08/30. This morning around 6:30 a.m., patient was sitting in his truck when he began having squeezing pain in his left upper arm. States the pain was intermittent. He prompted here shortly afterwards. Pain is still present and intermittent currently in the ED. Denied numbness or weakness of arm. He denies the pain radiating to his chest, denied neck, back, jaw pain. He has felt intermittently short of breath over the last couple of days, but was told this may be related to his new medications. Denies recent cough or cold symptoms, fevers, lower extremity pain or swelling. Related Data Home Medications Medication Instructions Recorded Confirmed citalopram 20 mg tablet (Celexa) 20 mg PO QHS 08/09/23 08/09/23 Allergies Allergy/AdvReac Type Severity Reaction Status Date / Time cefuroxime AdvReac Mild GI upset Verified 08/15/23 08:44 Review of Systems Review of Systems: CONSTITUTIONAL: Denies fever, chills, or sweats. ENT: Denies rhinorrhea, congestion, sore throat. CARDIOVASCULAR: Denies chest pain, palpitations, or edema. RESPIRATORY: See HPI. GASTROINTESTINAL: Denies abdominal pain, nausea, vomiting. MUSCULOSKELETAL: See HPI. NEUROLOGIC: Denies headache, dizziness, numbness, or weakness. All systems reviewed & are unremarkable except as noted in HPI and below PMFSH Past Medical History Medical History (Updated 08/15/23 @ 11:06 by Alisha Philippe PA-C) Allergic rhinitis Depression Obstructive sleep apnea Polysomnogram 2020 recommending auto titrating CPAP 6-15 cm of water. However the patient states his physician told him given his symptoms that he did not need to use CPAP Pterygium eye surgery Pure hypercholesterolemia Squamous cell carcinoma of right hand Surgical History Surgical History (Updated 08/15/23 @ 11:06 by Alisha Philippe PA-C) No history of previous surgery S/P coronary artery stent placement Family History Family History Father Heart disease Acute myocardial infarction, Onset Age: 50 COPD (chronic obstructive pulmonary disease) Cause of approximately 70 Mother Age older than 80 years Healthy adult Social History Social History Social History: Patient lives with his of 27 years. He has 2 step children. 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 He does not drink alcohol at all. He is a lifelong nonsmoker and does not use illicit substances. 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 Code status: Full code Surrogate decision maker: Muriel () cell number Smoking status: Never smoker Second hand tobacco smoke exposure: No Alcohol intake: never Substance use: never Substance use type: does not use Do You Feel Safe in your Home?: Yes Lack of Transportation: No Lack of Food: Never True Current Housing: I Have Housing Concerned About Future Housing: No Difficulty Paying Gas/Electric Bills: No Difficulty Paying for Meds: No Currently Unemployed: N
[2023-08-15 09:08] LABS: Basophils Percent Auto 0.3 % (0.2-1.2); Eosinophils Absolute Auto 0.3 K/mm3 (0-0.3); Eosinophils Percent Auto 4.3 % (0-4.4); Hematocrit 48.4 % (42.0-52.0); Hemoglobin 16.2 g/dL (14.0-18.0); Immature Granulocyte Absolute 0.04 K/mm3 (0.00-0.031); Immature Granulocyte Percent A 0.6 % (0-0.5); Lymphocytes Absolute Auto 1.08 K/mm3 (0.9-3.2); Lymphocytes Percent Auto 15.8 % (18.3-44.2); Mean Corpuscular HGB Conc 33.5 g/dl (32-36); Mean Corpuscular Hemoglobin 29.5 pg (26-34); Mean Corpuscular Volume 88.2 fl (80-100); Mean Platelet Volume 8.6 fl (7.4-10.4); Monocytes Absolute Auto 0.5 K/mm3 (0.1-0.6); Neutrophils Absolute Auto 4.9 K/mm3 (1.3-6.7); Platelet Count Result 261 k/mm3 (150-375); Red Blood Count 5.49 M/mm3 (4.6-6.20); Red Cell Distribution Width 12.8 % (11.5-14.5); White Blood Count 6.8 K/mm3 (4.5-10.0)
--- NOTE | 2023-08-15 09:08 | PC.NURSE ---
Pt took Aspirin 81mg at home prior to arrival today. Dr. Craig informed and orders received to reduce dose to 3 tab
[2023-08-15] MEDS: ASPIRIN 81 MG CHEWABLE TABLET 243 MG PO (09:09)
[2023-08-15 09:19] LABS: Alanine Aminotransferase 26 U/L (6-50); Albumin Level 4.5 g/dL (3.5-5.1); Alkaline Phosphatase 79 U/L (38-126); Anion Gap 8 mmol/L (8-16); Aspartate Amino Transferase 30 U/L (17-59); Bilirubin,Total 1.7 mg/dL (0.2-1.3); Blood Urea Nitrogen 22 mg/dL (9-20); Calcium 9.4 mg/dL (8.4-10.2); Carbon Dioxide 27 mmol/L (22-30); Chloride 103 mmol/L (98-107); Estimated CRCL calculation 86 ml/min; Estimated Glomerular Filt Rate > 60; Glucose 103 mg/dL (65-110); Lipase 166 U/L (23-300); Potassium 4.3 mmol/L (3.4-5.0); Sodium 138 mmol/L (137-145)
[2023-08-15 09:22] LABS: INR 1.1; Prothrombin Time 14.3 Seconds (11.1-14.7)
[2023-08-15 09:23] LABS: Partial Thromboplastin Time 26.4 SECONDS (22.3-36.8)
[2023-08-15 09:33] LABS: Troponin I 0.069 ng/mL (0.000-0.034)
[2023-08-15 10:16] LABS: NT Pro B Type Natriuretic Pept 69 pg/mL (19.9-100)
--- NOTE | 2023-08-15 10:50 | PC.NURSE ---
Assessment unchanged. Pt denies any change in pain to left arm. Denies any c/o chest pain
--- NOTE | 2023-08-15 11:28 | ECG_ITS ---
Measurements Intervals [place] Rate: 60 P: 64 PA: 176 QRS: 72 QRSD: 154 T: 69 QT: 463 QTc: 463 Interpretive Statements SINUS RHYTHM RIGHT BUNDLE BRANCH BLOCK CANNOT RULE OUT SEPTAL INFARCT, AGE INDETERMINATE ABNORMAL ECG COMPARED TO ECG 08/15/2023 08:47:16 NO SIGNIFICANT CHANGES Electronically Signed On 08-15-2023 12:12:21 AIRPLANE MECHANIC APPRENTICE by Toney Camara D.O.
[2023-08-15 12:17] LABS: Troponin I 0.057 ng/mL (0.000-0.034)
== END 2023-08-15 12:47 | disposition home or self-care (01) ==
PROVIDERS: Emergency Medicine; Emergency Provider Physician Assistant; PCP Internal Medicine
DX: M79.622 Pain in left upper arm (principal); Z95.5 Presence of coronary angioplasty implant and graft; I45.10 Unspecified right bundle-branch block; F32.A Depression, unspecified; G47.30 Sleep apnea, unspecified; E78.5 Hyperlipidemia, unspecified
CPT/HCPCS: 36415; 71046; 80053; 83690; 83880; 84484; 85025; 85610; 85730; 93005; 99284; A9270

== ENCOUNTER 2024-11-04 06:34 | Day surgery (SDC) | payer OTHER, SELFPAY ==
[2024-10-18 11:16] VITALS: BMI 24.4
[2024-10-21 13:04] VITALS: BMI 24.6
--- OUTSIDE RECORDS SUMMARY | 2024-11-04 06:56 | XMS_ITS | Continuity of Care Document ---
Author Organization [facility] Address [address] [place] [address] Phone Care Team Providers Care Factory Focus Technician Name Role Phone Irving Ruiz MD Unavailable Unavailable Allergies, Adverse Reactions, Alerts Substance Reaction Status Criticality No Known Allergies Active No Inform ation Medications Medication Instructions Dosage Effective Dates (start - stop) Status Comments Mobic 15 mg Tab take 1 tablet by ora l route every day 1 po daily 15 MG - Active Mobic 15 mg Tab take 1 tablet by ora l route every day 1 po daily 15 MG - No Longer Active Procedures Procedure Date X-ray exam ankle, minimum 3 views Office/outpatient visit,[facility] 2012 Advance Directives Directive Yes / No Effective Date File Name No Information Encounters Encounter Description Practice Location Reason(s) For Visit Diagnoses Date Provider Providers Copied on Encounter [facility], [address] [place] [address], [id number], tel:[phone] No Information 4 Joseph Villatoro. [address] [place] [address], [id number] , [place]. tel: [phone] [facility], [address] [place] [address], [id number], [place] tel:[phone] [facility] No Information 4 Joseph Villatoro. [address] [place] [address], [address], [id number] , [place]. tel:[phone] Office/outpat ient visit,new, [facility], [address], [place], [place], [id number], tel:[phone] [facility] left ankle pain (chief complaint) Acute Pain Due To TraumaACHILLES TENDINITIS Sep-3 0-201 3 Joseph Villatoro. [address], [address], [place], [place], [id number] , [place]. tel: [phone] Family History Family Member Type Diagnosis Age At Onset No Information Payers Payer name Insurance type Covered alliance party ID Authoriza bernadine(s) Ander Blue Cross Blue Shiel d [facility] [id number] Social History Type Description Quantity Date Captured Comments Sex Male Smoking Status No Information Chief Complaint And Reason For Visit No Information Reason For Referral Reason For Referral No Information Plan Of Treatment Date Type Action Status Referral Ordered: X-ray exam ankle, minimum 3 views Left ordered History Of Present Illness Encounter Date Complaint History Of Prese nt Illness No Information Functional Status Date Functional Assessmen t No Information Instructions Date Instruction Additional Infor mation Limit walking, standing and impa ct Relative rest Take medications with food Assessments Type Assessment Date No Information Patient Care Teams Name Effective Dates (start - stop) Status Members No Information
--- OUTSIDE RECORDS SUMMARY | 2024-11-04 06:56 | XMS_ITS | Referral Summary ---
Author Organization [facility] [address] [place] [address] 162 [address] [place] [address] Care Team Providers Care Customer Equipment Engineer Name Role Phone Agustin Hargrove MD Primary Care Provider [phone]- [phone] Encounters Date Type Department Care Team Description 10/28/2024 Telephone [facility] Medical [facility] Cardiology [address] [facility] [address] [place] [address] Alvin Zamudio MD 08/29/2024 Telephone [facility] Cardiology [address] [place] [address] [address] [place] [address] Alvin Zamudio MD Med Refill from Last 3 Months Allergies No known active allergies Medications clopidogreL (PLAVIX) 75 mg tablet Take a loading dose of 600 mg ( 8 tablets) in am on day one, then 1 tablet daily thereafter. 38 tablet 11 08/21/2023 Active citalopram (CeleXA) 20 mg tablet Take 1 tablet (20 mg total) by mouth nightly 05/30/2023 Active aspirin 81 mg chewable tablet TAKE 1 TABLET BY MOUTH DAILY AT 0800 30 tablet 1 10/10/2023 Active nitroglycerin (NITROSTAT) 0.4 mg SL tabletIndication s:acute episode of anginal pain Place 1 tablet (0.4 mg total) under the tongue every 5 (five) minutes as needed for chest pain May repeat dose q 5 min, up to 3 doses total 25 tablet 1 12/12/2023 12/12/19 25 Active metoprolol tartrate (LOPRESSOR) 25 mg immediate release tablet TAKE 1 TABLET BY MOUTH EVERY 12 HOURS 180 tablet 3 09/03/2024 Active isosorbide mononitrate ER (IMDUR) 30 mg 24 hr tablet TAKE 1 TABLET BY MOUTH EVERY DAY 90 tablet 3 09/03/2024 Active atorvastatin (LIPITOR) 40 mg tablet TAKE 1 TABLET BY MOUTH EVERY DAY 90 tablet 3 09/03/2024 Active Active Problems Problem Noted Date Diagnosed Date Nonrheumatic mitral valve regurgitation 12/12/19 Left atrial enlargement 12/12/2023 Hyperlipidemia LDL goal <70 12/12/2023 NSTEMI (non-ST elevated myocardial infarction) 0 08/30/2023 Coronary artery disease invo lving [place] coronary artery of [place] heart with angina pectoris 08/30/2023 Lipid screening 08/30/2023 Social History Tobacco Use Types Packs/Day Years Used Date Smoking Tobacco: Never Smokeless Tobacco: Never Tobacco Cessation:Counseling Given: Not Answered Sex and Gender Information Value Date Recorded Sex Assigned at Not on file Legal Sex Male 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 Gender Identity Not on file Sexual Orientation Not on file Last Filed Vital Signs Vital Sign Reading Time Taken Comments Blood Pressure 126/74 07/26/2024 2:35 PM FINANCIAL RESERVE CLERK Pulse 68 07/26/2024 2:35 PM FINANCIAL RESERVE CLERK Temperature - - Respiratory Rate - - Oxygen Saturation 96% 07/26/2024 2:35 PM FINANCIAL RESERVE CLERK Inhaled Oxygen Concentration - - Weight 79.8 kg (176 lb) 07/26/2024 2:35 PM FINANCIAL RESERVE CLERK Height 180.3 cm (5' 11 ) 07/26/2024 2:35 PM FINANCIAL RESERVE CLERK Body Mass Index 24.55 07/26/2024 2:35 PM FINANCIAL RESERVE CLERK Plan of Treatment Not on file Insurance [facility] PLUS [facility] H[facility]PPO Address: [facility] [address] [place] [address] Care Teams Customer Equipment Engineer Relationship Specialty Start Date End Date Agustin Hargrove MD [address] [facility] [address] [place] [address] PCP - General Internal Medicine 08/08/23
--- OUTSIDE RECORDS SUMMARY | 2024-11-04 06:56 | XMS_ITS | Clinical Summary ---
Author Organization [facility] [place] [place] [address] Address [address] [place] [address] Care Team Providers Care Gym Supervisor Name Role Phone Agustin Hargrove MD Primary Care Provider +1- [phone] Allergies No known active allergies Medications clopidogreL [...] Diagnosed Date Nonrheumatic mitral valve regurgitation 12/12/19 24 Left atrial enlargement 12/12/2023 Hyperlipidemia LDL goal <70 12/12/2023 NSTEMI (non-ST elevated myocardial infarction) 0 08/30/2023 Coronary artery disease invo lving [place] coronary artery of [place] heart with angina pectoris 08/30/2023 Lipid screening 08/30/2023 Encounters Date Type Department Care Team Description 10/28/2024 Telephone [facility] Cardiology [address] [place] [address] Alvin Zamudio MD 08/29/2024 Telephone [facility] Cardiology [address] [place] [address] Alvin Zamudio MD Med Refill from Last 3 Months Medical History Medical History Date Comments NSTEMI (non-ST elevated myocardial infarction) ( HCC) CAD (coronary artery disease) Social History Tobacco Use Types Packs/Day Years Used Date Smoking Tobacco: Never Smokeless Tobacco: Never Tobacco Cessation:Counseling Given: Not Answered Sex and Gender Information Value Date Recorded Sex Assigned at Not on file Legal Sex Male 10:30 AM FILLING HAULER Gender Identity Not on file Sexual Orientation Not on file Obstetrics History Last Filed Vital Signs Vital Sign Reading Time Taken Comments Blood Pressure 126/74 07/26/2024 2:35 PM FILLING HAULER Pulse 68 07/26/2024 2:35 PM FILLING HAULER Temperature - - Respiratory Rate - - Oxygen Saturation 96% 07/26/2024 2:35 PM FILLING HAULER Inhaled Oxygen Concentration - - Weight 79.8 kg (176 lb) 07/26/2024 2:35 PM FILLING HAULER Height 180.3 cm (5' 11 ) 07/26/2024 2:35 PM FILLING HAULER Body Mass Index 24.55 07/26/2024 2:35 PM FILLING HAULER Plan of Treatment Health Maintenance Due Date Last Done Comments Colon Cancer Screening-Colonoscopy 1959 Depression Screening 1959 Fall Risk Assessment 1959 Hepatitis C Screening 1959 Prostate Cancer Screening-PSA 1959 Hepatitis B Screening 1977 Zoster Vaccine (2 of 2) 08/05/2023 06/10/2023 Covid-19 Vaccine (2023-2 5 season) 2024 07/03/2023, 06/08/2021, 10/30/2020, Additional history exists Well Visit 65+ 2024 DTaP/Tdap/Td Vaccine (2 - Td or Tdap) 09/14/2024 09/14/2014 Influenza Vaccine (Season Ended) 2025 05/11/2022, 04/06/2021, 04/07/2020, Additional history exists Pneumococcal vaccine 65+ Completed 05/10/2022 Insurance [facility] CHOICE PLUS [facility] H[facility]/PPO Address: [facility] [address] [place] [address] Care Teams Gym Supervisor Relationship Specialty Start Date End Date Agustin Hargrove MD [address] [facility] [address] [place] [address] PCP - General Internal Medicine 08/08/23
--- NOTE | 2024-11-04 06:59 | P.PNAN_ITS ---
Anes - Initial Pre Proc Eval Procedure: Operation Date: 11/04/24 08:30 Proposed Procedures p Screening Colonoscopy - David Portillo MD Date/Time: 11/04/24 06:59 Surgeon: David Portillo MD Pre Op Diagnosis: Screening for Neoplasm of Colon Patient Data Age: 64 Gender: M Height: 1.75 m Weight: 75.75 kg Allergies Allergy/AdvReac Type Severity Reaction Status Date / Time No Known Allergies Allergy Verified 11/04/24 07:08 Home Medications ?Medication ?Instructions ?Recorded ?Confirmed ?Type aspirin 81 mg chewable tablet 81 mg PO DAILY@0800 #30 tabs 08/10/23 11/04/24 Rx (Children's Aspirin) atorvastatin 40 mg tablet 40 mg PO DAILY #30 tabs 08/10/23 11/04/24 Rx metoprolol tartrate 25 mg tablet 25 mg PO Q12HR #60 tabs 08/10/23 11/04/24 Rx isosorbide mononitrate 30 mg 30 mg PO DAILY #30 tabs 08/15/23 11/04/24 Rx tablet,extended release 24 hr clopidogrel 75 mg tablet 75 mg PO DAILY 10/21/24 11/04/24 History citalopram 20 mg tablet See Rx Instructions .Route 10/28/24 11/04/24 Rx .COMPLEX #90 tabs Patient hx anesthesia problems: none Family hx anesthesia problems: none Results Review: All pre-operative results and documents have been reviewed as part of the pre- operative evaluation. [facility]LY [facility], [facility] Past Medical History Medical History (Updated 11/04/24 @ 07:01 by Valeriy Blackman DO) ACS (acute coronary syndrome) STEMI (ST elevation myocardial infarction) BMI 24.0-24.9, adult Squamous cell carcinoma of right hand Pterygium eye surgery Allergic rhinitis Obstructive sleep apnea Polysomnogram 2020 recommending auto titrating CPAP 6-15 cm of water. However the patient states his physician told him given his symptoms that he did not need to use CPAP Depression Pure hypercholesterolemia Surgical History Surgical History S/P coronary artery stent placement No history of previous surgery Family History Family History (Updated 10/17/24 @ 14:32 by Karol Franklin Jacinto) Father Heart disease Acute myocardial infarction, Onset Age: 50 COPD (chronic obstructive pulmonary disease) Cause of approximately 70 Mother Age older than 80 years Healthy adult Sibling No problems noted. Social History Social History (Updated 10/17/24 @ 14:33 by Karol Franklin Jacinto) Social History: Patient lives with his of 27 years. He has 2 step children. 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 He does not drink alcohol at all. He is a lifelong nonsmoker and does not use illicit substances. 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 Code status: Full code Surrogate decision maker: Muriel () cell number Smoking status: Never smoker Second hand tobacco smoke exposure: No Alcohol intake: never Substance use: never Substance use type: does not use Do You Feel Safe in your Home?: Yes Lack of Transportation: No Lack of Food: Never True Current Housing: I Have Housing Concerned About Future Housing: No Difficulty Paying Gas/Electric Bills: No Difficulty Paying for Meds: No Currently Unemployed: No Education: Bachelor's Degree Difficulty w/ Childcare or Family Care: No Living arrangements: with family Occupation/Education: occupation 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 Informed Consent: The patient's anesthetic plan and its attendant risks and benefits were discussed with the patient/family/POA. Questions were solicited and answers provided to the satisfaction of the patient/family/POA.
[2024-11-04 07:14] VITALS: BP 124/78; PULSE 55; RESP 14; TEMP 36.2; O2SAT 99
[2024-11-04] MEDS: LACTATED RINGERS 1,000 ML 150 ML IV CONT (07:27)
--- NOTE | 2024-11-04 08:30 | PM.IMHP ---
H&P: HPI History of Present Illness Date/Time: 11/04/24 08:30 Chief Complaint: Screening colonoscopy Narrative: This is the patient's first colonoscopy after 10 years. There are no GI symptoms and there is no family history of colorectal cancer. Review of Systems Review of Systems: All systems reviewed & are unremarkable except as noted in HPI and below PMFSH Past Medical History Medical History (Updated 11/04/24 @ 08:31 by David Portillo MD) ACS (acute coronary syndrome) STEMI (ST elevation myocardial infarction) BMI 24.0-24.9, adult Squamous cell carcinoma of right hand Pterygium eye surgery Allergic rhinitis Obstructive sleep apnea Polysomnogram 2020 recommending auto titrating CPAP 6-15 cm of water. However the patient states his physician told him given his symptoms that he did not need to use CPAP Depression Pure hypercholesterolemia Surgical History Surgical History S/P coronary artery stent placement No history of previous surgery Family History Family History (Updated 10/17/24 @ 14:32 by CHANEL Carlos) Father Heart disease Acute myocardial infarction, Onset Age: 50 COPD (chronic obstructive pulmonary disease) Cause of approximately 70 Mother Age older than 80 years Healthy adult Sibling No problems noted. Social History Social History (Updated 10/17/24 @ 14:33 by CHANEL Carlos) Social History: Patient lives with his of 27 years. He has 2 step children. 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 He does not drink alcohol at all. He is a lifelong nonsmoker and does not use illicit substances. 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 Code status: Full code Surrogate decision maker: Muriel () cell number Smoking status: Never smoker Second hand tobacco smoke exposure: No Alcohol intake: never Substance use: never Substance use type: does not use Do You Feel Safe in your Home?: Yes Lack of Transportation: No Lack of Food: Never True Current Housing: I Have Housing Concerned About Future Housing: No Difficulty Paying Gas/Electric Bills: No Difficulty Paying for Meds: No Currently Unemployed: No Education: Bachelor's Degree Difficulty w/ Childcare or Family Care: No Living arrangements: with family Occupation/Education: occupation 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 Gender identity (if verbalized by the patient): Male Spiritual care concerns: No Meds Home Medications and Allergies Home Medications ?Medication ?Instructions ?Recorded ?Confirmed ?Type aspirin 81 mg chewable tablet 81 mg PO DAILY@0800 #30 tabs 08/10/23 11/04/24 Rx (Children's Aspirin) atorvastatin 40 mg tablet 40 mg PO DAILY #30 tabs 08/10/23 11/04/24 Rx metoprolol tartrate 25 mg tablet 25 mg PO Q12HR #60 tabs 08/10/23 11/04/24 Rx isosorbide mononitrate 30 mg 30 mg PO DAILY #30 tabs 08/15/23 11/04/24 Rx tablet,extended release 24 hr clopidogrel 75 mg tablet 75 mg PO DAILY 10/21/24 11/04/24 History citalopram 20 mg tablet See Rx Instructions .Route 10/28/24 11/04/24 Rx .COMPLEX #90 tabs Allergies Allergy/AdvReac Type Severity Reaction Status Date / Time No Known Allergies Allergy Verified 11/04/24 07:08 Vital Signs Vital Signs - 24 hr 11/04/24 07:14 Temperature 97.2 F L Pulse Rate 55 L Respiratory Rate 14 Blood Pressure 124/78 Pulse Oximetry 99 Oxygen Delivery Room Air Exam Const: General: cooperative and healthy appearing Resp: Effort & Inspection: normal respiratory effort and able to speak in complete sentences Auscultation: clear to auscultation bilaterally Cardio: Rate: regular rate Rhythm: regular rhythm GI: Inspection: normal to inspection GI Palp: No No hepatosplenomegaly present Auscultation: normal bowel sounds Rectal Exam: deferred Skin: General skin exam: normal color Psych: Appearance: grossly normal Mental Status: mental status grossly normal Assessment and Plan Assessment and plan (1) Encounter for screening colonoscopy: Code(s): Z12.11 - Encounter for screening for malignant neoplasm of colon Status: Acute Assessment and Plan: The patient is deemed a good candidate for the procedure. Consent signed. Will proceed.
[2024-11-04 09:03] VITALS: BP 114/72; PULSE 50; RESP 16; O2SAT 99
--- NOTE | 2024-11-04 09:12 | SUR.PHASEII ---
Per Dr Portillo pt to continue to hold Plavix for 5 days. May resume on 11/10/2024.
[2024-11-04 09:13] VITALS: BP 111/82; PULSE 45; RESP 16; O2SAT 100
[2024-11-04 09:23] VITALS: BP 114/80; PULSE 46; RESP 16; O2SAT 97
--- NOTE | 2024-11-04 12:20 | WPDANESPN ---
Anes - Prog Note Post-Op Date/Time: 11/04/24 12:20 Cardiovascular status: normal Respiratory status: normal Airway patency: baseline Mental status: baseline Post-Op hydration status: normal Vital Signs: Last Vital Signs Temp 36.2 C L 11/04/24 07:14 Pulse 46 L 11/04/24 09:23 Resp 16 11/04/24 09:23 BP 114/80 11/04/24 09:23 Pulse Ox 97 11/04/24 09:23 O2 Del Method Room Air 11/04/24 09:23 Pain Score (VAS): 0 I/O: Intake & Output 11/03/24 11/04/24 11/04/24 23:59 07:59 15:59 Intake Total 600 Balance 600 Post-procedural complaints: none Patient Feedback: Patient satisfied with anesthetic care. Other Findings: Patient vital signs back to baseline. Patient denies nausea and vomiting. Patient's pain under control. Patient OK for discharge.
== END 2024-11-04 09:29 | disposition home or self-care (01) ==
PROVIDERS: PCP Internal Medicine; Referring Provider Nurse Practitioner; Visit Provider Internal Medicine Gastroenterology
PROC: 0DJD8ZZ Inspection of Lower Intestinal Tract, Via Natural or Artificial Opening Endoscopic (ICD-10-PCS; CPT 45378; principal; 2024-11-04 08:30)
DX: Z12.11 Encounter for screening for malignant neoplasm of colon (principal); K63.5 Polyp of colon; D12.5 Benign neoplasm of sigmoid colon
CPT/HCPCS: 45381; 45385

== ENCOUNTER 2024-11-04 07:00 | Outpatient (NON) | payer OTHER, SELFPAY ==
--- OUTSIDE RECORDS SUMMARY | 2024-11-05 07:46 | XMS_ITS | Referral Summary ---
Author Organization [facility] [place] [address] [place] [address] 162 Address [address] [place] [address] Care Team Providers Care Drug And Alcohol Counsellor Name Role Phone Agustin Hargrove MD Primary Care Provider +1- [phone] Encounters Date Type Department Care Team Description 10/28/2024 Telephone [facility] Medical [facility] Cardiology [address] [facility] [address] [place] [address] Alvin Zamudio MD 08/29/2024 Telephone [facility] Cardiology [address] [place] [address] [address] [place] [address] Alvin Zamudio MD Med Refill [...] 0 08/30/2023 Coronary artery disease invo lving [facility] coronary artery of [place] heart with angina pectoris 08/30/2023 Lipid screening 08/30/2023 Social History Tobacco Use Types Packs/Day Years Used Date Smoking Tobacco: Never Smokeless Tobacco: Never Tobacco Cessation:Counseling Given: Not Answered Sex and Gender Information Value Date Recorded Sex Assigned at Not on file Legal Sex Male 10:30 AM TRANSPORTATION ENGINEER Gender Identity Not on file Sexual Orientation Not on file Last Filed Vital Signs Vital Sign Reading Time Taken Comments Blood Pressure 126/74 07/26/2024 2:35 PM TRANSPORTATION ENGINEER Pulse 68 07/26/2024 2:35 PM TRANSPORTATION ENGINEER Temperature - - Respiratory Rate - - Oxygen Saturation 96% 07/26/2024 2:35 PM TRANSPORTATION ENGINEER Inhaled Oxygen Concentration - - Weight 79.8 kg (176 lb) 07/26/2024 2:35 PM TRANSPORTATION ENGINEER Height 180.3 cm (5' 11 ) 07/26/2024 2:35 PM TRANSPORTATION ENGINEER Body Mass Index 24.55 07/26/2024 2:35 PM TRANSPORTATION ENGINEER Plan of Treatment Not on file Insurance [facility] CHOICE PLUS [facility] HMO/PPO Address: [facility] [address] [place] [address] Care Teams Drug And Alcohol Counsellor Relationship Specialty Start Date End Date Agustin Hargrove MD [address] [facility] [address] [place] [address] PCP - General Internal Medicine 08/08/23
--- OUTSIDE RECORDS SUMMARY | 2024-11-05 07:46 | XMS_ITS | Clinical Summary ---
Author Organization [facility] [place] [address] Address [address] [place] [address] Care Team Providers Care Feed Research Aide Name Role Phone Agustin Hargrove MD Primary Care Provider +1- [phone] Allergies No known active allergies Medications clopidogreL [...] 0 08/30/2023 Coronary artery disease invo lving [place] coronary artery of [place] heart with angina pectoris 08/30/2023 Lipid screening 08/30/2023 Encounters Date Type Department Care Team Description 10/28/2024 Telephone [facility] Medical Group Cardiology [address] [place] [address] Alvin Zamudio MD 08/29/2024 Telephone [facility] Cardiology [address] [place] [address] Alvin Zamudio MD Med Refill [...] on file Legal Sex Male 10:30 AM FIELD RECRUITER Gender Identity Not on file Sexual Orientation Not on file Obstetrics History Last Filed Vital Signs Vital Sign Reading Time Taken Comments Blood Pressure 126/74 07/26/2024 2:35 PM FIELD RECRUITER Pulse 68 07/26/2024 2:35 PM FIELD RECRUITER Temperature - - Respiratory Rate - - Oxygen Saturation 96% 07/26/2024 2:35 PM FIELD RECRUITER Inhaled Oxygen Concentration - - Weight 79.8 kg (176 lb) 07/26/2024 2:35 PM FIELD RECRUITER Height 180.3 cm (5' 11 ) 07/26/2024 2:35 PM FIELD RECRUITER Body Mass Index 24.55 07/26/2024 2:35 PM FIELD RECRUITER Plan of Treatment Health Maintenance Due Date [...] exists Pneumococcal vaccine 65+ Completed 05/10/2022 Insurance [facility] CHOICE PLUS Care Teams Feed Research Aide Relationship Specialty Start Date End Date Agustin Hargrove MD [address] [facility] [address] [place] [address] PCP - General Internal Medicine 08/08/23
--- OUTSIDE RECORDS SUMMARY | 2024-11-05 07:46 | XMS_ITS | Continuity of Care Document ---
Author Organization [facility] Address [address] [place] [address] Phone Care Team Providers Care Hair Worker Name Role Phone Irving Ruiz MD Unavailable [...] Date Provider Providers Copied on Encounter [facility], [address] [place] [address], [id number], tel:[phone] No Information 4 Joseph Villatoro. [address] [place] [address], [id number] , [place]. tel: [phone] [facility], [address] [place] [address], [id number], [place] tel:[phone] [facility] No Information 4 Joseph Villatoro. [address] [place] [address], [address], [id number] , [place]. tel:[phone] Office/outpat ient visit,new, mod [facility], [address], [place], [place], [id number], tel:[phone] [facility] left ankle pain (chief complaint) Acute Pain Due To TraumaACHILLES TENDINITIS Sep-3 0-201 3 Joseph Villatoro. [address], [address], [place], [place], [id number] , [place]. tel: [phone] Family History Family Member Type Diagnosis Age At Onset No Information Payers Payer name Insurance type Covered alliance party ID Authoriza bernadine(s) Ander [employer] Blue Shiel d [facility] [id number] Social History Type Description Quantity Date Captured [...]
--- OUTSIDE RECORDS SUMMARY | 2024-11-05 07:47 | XMS_ITS | Continuity of Care Document ---
Author Organization [facility] Address [address] [place] [address] Phone Care Team Providers Care Epidemiology Intern Name Role Phone Irving Ruiz MD Unavailable [...] X-ray exam ankle, minimum 3 views [facility] Advance Directives Directive Yes / No Effective Date File Name No Information Encounters Encounter Description Practice Location Reason(s) For Visit Diagnoses Date Provider Providers Copied on Encounter [email or web address], [address] [place] [address], [id number], tel:[phone] No Information 4 Joseph Villatoro. [address] [place] [address], [id number] , [place]. tel: [phone] [email or web address], [address] [place] [address], [id number], [place] tel:[phone] [facility] No Information 4 Joseph Villatoro. [address] [place] [address], [address], [id number] , [place]. tel:[phone] Office/outpat ient visit,new, mod [facility], [address], [place], [place], [id number], tel:[phone] [facility] left ankle pain (chief complaint) Acute Pain Due To TraumaACHILLES TENDINITIS Sep-3 0-201 3 Joseph Villatoro. [address], [address], [place], [place], [id number] , [place]. tel: [phone] Family History Family Member Type Diagnosis Age At Onset No Information Payers Payer name Insurance type Covered alliance party ID Authoriza bernadine(s) Ander [employer] Blue Shiel d [facility] [id number] Social History Type Description Quantity Date Captured [...]
== END 2024-11-04 07:01 | disposition home or self-care (01) ==
PROVIDERS: PCP Internal Medicine; Visit Provider Internal Medicine Gastroenterology
DX: Z12.11 Encounter for screening for malignant neoplasm of colon (principal); D12.5 Benign neoplasm of sigmoid colon; K63.5 Polyp of colon
CPT/HCPCS: 88305